=== PATIENT | female | born 1990 | race Two or more races ===

== ENCOUNTER 2023-03-14 12:02 | Emergency (ER) | payer OTHER ==
[2023-03-14 12:15] VITALS: BP 108/49; PULSE 86; RESP 18; TEMP 98.5; BMI 27.2
[2023-03-14] MEDS ORDERED: IBUPROFEN 600 MG TABLET (FP) PO ONE ×2 (12:30→12:40)
== END 2023-03-14 13:19 | disposition home or self-care (01) ==
LOC: JER 12:02 → JERFT 12:02
DX: S93.402A Sprain of unspecified ligament of left ankle, initial encounter (principal); W01.0XXA Fall on same level from slipping, tripping and stumbling without subsequent striking against object, initial encounter
CPT/HCPCS: 73610-TC-LT-FY; 73630-TC-LT; 99283-25

== ENCOUNTER 2023-11-06 13:01 | Emergency (ER) | payer OTHER ==
[2023-11-06 13:14] VITALS: BP 108/68; PULSE 94; RESP 18; TEMP 98.3; BMI 27.8
[2023-11-06] MEDS ORDERED: ACETAMINOPHEN 1000 MG/100 ML BAG IVPB ONE (13:46)
[2023-11-06] MEDS ORDERED: LACTATED RINGERS SOLUTION 1000 ML INFUS.BAG IV ONE (13:46)
[2023-11-06] MEDS ORDERED: ONDANSETRON 4 MG/2 ML VIAL IVPUSH ONE (13:46)
[2023-11-06] MEDS ORDERED: ACETAMINOPHEN INJECTION 100 ML IVPB ONE (14:28)
[2023-11-06 14:41] LABS: BASO % 0.3 % (0-2.0); EOS % 0.4 % (0-4.5); HEMATOCRIT 34.2 % (32.4-45.2); HEMOGLOBIN 11.5 GM/dL (10.7-15.3); LYMPH % 13.3 % (8-40); MCH 28.7 pg (25.7-33.7); MCHC 33.7 g/dl (32.0-36.0); MEAN CELL VOLUME 85.2 fl (80-96); MONO % 6.7 % (3.8-10.2); NEUT % 79.3 % (42.8-82.8); PLATELET COUNT 263 10^3/uL (134-434); RBC 4.01 M/mm3 (3.60-5.2); RDW 13.2 % (11.6-15.6); WHITE BLOOD COUNT 8.6 K/mm3 (4.0-10.0)
[2023-11-06 14:42] LABS: PH,URINE 6.5 (5.0-8.0); URINE APPEARANCE CLOUDY; URINE BILIRUBIN NEGATIVE (NEGATIVE); URINE COLOR YELLOW; URINE GLUCOSE (UA) NEGATIVE (NEGATIVE); URINE KETONE NEGATIVE (NEGATIVE); URINE LEUK ESTERASE NEGATIVE (NEGATIVE); URINE NITRITE NEGATIVE (NEGATIVE); URINE PROTEIN NEGATIVE (NEGATIVE); URINE UROBILINOGEN 0.2 mg/dL (0.2-1.0)
[2023-11-06 15:14] LABS: CHLORIDE 105 mmol/L (98-107); POTASSIUM 4.2 mmol/L (3.5-5.1); SODIUM 136 mmol/L (136-145)
[2023-11-06 15:19] LABS: CALCIUM 9.1 mg/dL (8.5-10.1); GLUCOSE,RANDOM 75 mg/dL (74-106)
[2023-11-06 15:20] LABS: ALBUMIN 2.8 g/dl (3.4-5.0); ANION GAP 5 mmol/L (4-13); BLOOD UREA NITROGEN 10.9 mg/dL (7-18); CO2 26 mmol/L (21-32)
[2023-11-06 15:22] LABS: CREATININE 0.5 mg/dL (0.55-1.3); SGPT/ALT 11 U/L (13-61)
[2023-11-06 15:23] LABS: SGOT/AST 9 U/L (15-37)
[2023-11-06 15:24] LABS: BILIRUBIN,TOTAL < 0.1 mg/dL (0.2-1); TOT PROT 6.5 g/dl (6.4-8.2)
[2023-11-06 15:25] LABS: ALK PHOS 55 U/L (45-117)
== END 2023-11-06 16:56 | disposition home or self-care (01) ==
LOC: JER 13:01
PROC: 3E033NZ Introduction of Analgesics, Hypnotics, Sedatives into Peripheral Vein, Percutaneous Approach (ICD-10-PCS; principal; 2023-11-06)
DX: O26.892 Other specified pregnancy related conditions, second trimester (principal); M54.6 Pain in thoracic spine; R51.9 Headache, unspecified; O21.9 Vomiting of pregnancy, unspecified; Z3A.17 17 weeks gestation of pregnancy; Z20.822 Contact with and (suspected) exposure to COVID-19
CPT/HCPCS: 0241U-QW; 36415; 80053; 81003; 85025; 87086; 99284-25

== ENCOUNTER 2024-03-04 20:31 | Emergency (ER) | payer OTHER ==
[2024-03-04 20:48] VITALS: BMI 31.6
[2024-03-04] MEDS ORDERED: METOCLOPRAMIDE HCL INJECTION 10 MG/2 ML VIAL ONE (21:18)
[2024-03-04] MEDS ORDERED: FAMOTIDINE 20 MG/50 ML IVPB 20 MG/50 ML MG IVPB ONE (21:40)
[2024-03-04 21:42] LABS: BASO % 0.4 % (0-2.0); EOS % 0.7 % (0-4.5); HEMATOCRIT 33.3 % (32.4-45.2); HEMOGLOBIN 11.2 GM/dL (10.7-15.3); MCHC 33.6 g/dl (32.0-36.0); MEAN CELL VOLUME 80.4 fl (80-96); MEAN PLT VOLUME 7.7 fl (7.5-11.1); MONO % 7.9 % (3.8-10.2); PLATELET COUNT 297 10^3/uL (134-434); RBC 4.14 M/mm3 (3.60-5.2); RDW 13.4 % (11.6-15.6); WHITE BLOOD COUNT 8.9 K/mm3 (4.0-10.0)
[2024-03-04] MEDS: LACTATED RINGERS SOLUTION 1000 ML INFUS.BAG IV ONE (21:51)
[2024-03-04] MEDS: FAMOTIDINE 20 MG/50 ML IVPB 20 MG/50 ML MG IVPB ONE (21:52)
[2024-03-04] MEDS: METOCLOPRAMIDE HCL INJECTION 10 MG/2 ML VIAL IVPB ONE (21:52)
[2024-03-04 22:10] LABS: POTASSIUM 4.1 mmol/L (3.5-5.1)
[2024-03-04 22:12] LABS: ALBUMIN 2.6 g/dl (3.4-5.0); CALCIUM 8.8 mg/dL (8.5-10.1); MAGNESIUM 1.8 mg/dL (1.8-2.4)
[2024-03-04 22:15] LABS: CREATININE 0.4 mg/dL (0.55-1.3)
[2024-03-04 22:17] LABS: BILIRUBIN,TOTAL 0.3 mg/dL (0.2-1); TOT PROT 6.6 g/dl (6.4-8.2)
[2024-03-04 22:47] VITALS: PULSE 98
[2024-03-05 01:47] VITALS: BP 108/71; RESP 17; TEMP 98.1
== END 2024-03-05 02:32 | disposition home or self-care (01) ==
LOC: JER 20:31
PROC: 3E033GC Introduction of Other Therapeutic Substance into Peripheral Vein, Percutaneous Approach (ICD-10-PCS; principal; 2024-03-04)
PROC: 3E030GC Introduction of Other Therapeutic Substance into Peripheral Vein, Open Approach (ICD-10-PCS; 2024-03-04)
DX: O21.9 Vomiting of pregnancy, unspecified (principal); O26.893 Other specified pregnancy related conditions, third trimester; R42 Dizziness and giddiness; R63.0 Anorexia; Z3A.35 35 weeks gestation of pregnancy
CPT/HCPCS: 36415; 80053; 83690; 83735; 85025; 93005; 93010; 99284-25

== ENCOUNTER 2024-04-04 21:30 | Inpatient (IN) | payer OTHER ==
[2024-04-05] MEDS: LACTATED RINGERS SOLUTION 500 ML IV ONE (00:40)
[2024-04-05] MEDS: LACTATED RINGERS SOLUTION 1,000 ML IV SCH (01:20)
[2024-04-05 02:33] VITALS: BMI 32.5
[2024-04-05] MEDS: CITRIC ACID/SODIUM CITRATE 30 ML UNIT-DOSE CUP PO ONE (07:35)
[2024-04-05] MEDS: ELECTROLYTE-148 SOLN 500 ML IV ONE (07:45)
[2024-04-05 08:28] LABS: BASO % 0.4 % (0-2.0); EOS % 0.4 % (0-4.5); HEMATOCRIT 32.3 % (32.4-45.2); HEMOGLOBIN 10.9 GM/dL (10.7-15.3); LYMPH % 16.6 % (8-40); MCH 26.6 pg (25.7-33.7); MCHC 33.6 g/dl (32.0-36.0); MEAN CELL VOLUME 79.2 fl (80-96); MEAN PLT VOLUME 8.2 fl (7.5-11.1); MONO % 7.1 % (3.8-10.2); NEUT % 75.5 % (42.8-82.8); PLATELET COUNT 270 10^3/uL (134-434); RBC 4.08 M/mm3 (3.60-5.2); RDW 14.5 % (11.6-15.6); WHITE BLOOD COUNT 7.5 K/mm3 (4.0-10.0)
[2024-04-05 08:31] LABS: INR 0.95 (0.83-1.09); PROTHROMBIN TIME (PATIENT) 10.7 SEC (9.7-13.0)
[2024-04-05 08:34] LABS: ACTIVATED PTT 25.6 SECONDS (25.2-36.5)
[2024-04-05 08:37] LABS: POTASSIUM 3.9 mmol/L (3.5-5.1)
[2024-04-05 08:38] LABS: CALCIUM 8.9 mg/dL (8.5-10.1)
[2024-04-05 08:39] LABS: BLOOD UREA NITROGEN 6.8 mg/dL (7-18)
[2024-04-05 08:42] LABS: CREATININE 0.4 mg/dL (0.55-1.3)
[2024-04-05] MEDS: ELECTROLYTE-148 SOLN 1,000 ML IV SCH (09:00)
[2024-04-05] MEDS ORDERED: ONDANSETRON 4 MG/2 ML VIAL IVPUSH PRN (09:53)
[2024-04-05] MEDS ORDERED: ACETAMINOPHEN 325 MG TABLET (FP) PO PRN (09:53)
[2024-04-05] MEDS ORDERED: IBUPROFEN 600 MG TABLET (FP) PO PRN (09:53)
[2024-04-05] MEDS ORDERED: SODIUM CHLORIDE 0.9% P/F 10 ML VIAL IJ ONE (10:02)
[2024-04-05] MEDS ORDERED: PHENYLEPHRINE HCL 10 MG/1 ML SINGLE DOSE VIAL ONE (10:08)
[2024-04-05] MEDS ORDERED: OXYTOCIN 10 UNITS/ML VIAL ONE ×2 (10:26→10:52)
[2024-04-05] MEDS ORDERED: METOCLOPRAMIDE HCL INJECTION 10 MG/2 ML VIAL ONE (10:32)
[2024-04-05] MEDS: OXYTOCIN 20 UNITS in 0.9% NS 20 UNIT/1,000 ML INFUS.BAG IV SCH (11:10)
[2024-04-05] MEDS ORDERED: IBUPROFEN 800 MG/8 ML IJ IVPB ONE (12:08)
[2024-04-05] MEDS: IBUPROFEN 800 MG/8 ML IJ IVPB PRN (12:20)
[2024-04-05] MEDS: morphine SULFATE/PF 1 MG/2 ML (2cc Syringe - QUVA) EP ONE (12:24)
[2024-04-05 14:24] VITALS: RESP 18
[2024-04-05] MEDS: ACETAMINOPHEN 325 MG TABLET (FP) PO PRN (14:55)
[2024-04-05] MEDS: SIMETHICONE 80 MG TAB.CHEW (FP) PO PRN (21:25)
[2024-04-06] MEDS: oxyCODONE HCL 5 MG TABLET PO PRN (01:39)
[2024-04-06 06:40] LABS: BASO % 0.3 % (0-2.0); EOS % 0.4 % (0-4.5); HEMATOCRIT 30.5 % (32.4-45.2); HEMOGLOBIN 10.3 GM/dL (10.7-15.3); LYMPH % 8.5 % (8-40); MCHC 33.7 g/dl (32.0-36.0); MEAN CELL VOLUME 80.1 fl (80-96); NEUT % 84.8 % (42.8-82.8); PLATELET COUNT 235 10^3/uL (134-434); RDW 14.9 % (11.6-15.6); WHITE BLOOD COUNT 9.9 K/mm3 (4.0-10.0)
[2024-04-06 10:39] LABS: POC NITRAZINE NEG
[2024-04-06 10:41] LABS: POC NITRAZINE POS
[2024-04-06] MEDS: IBUPROFEN 600 MG TABLET (FP) PO PRN (15:00)
[2024-04-06] MEDS: BISACODYL 10 MG SUPP.RECT RC PRN (21:22)
[2024-04-06 22:56] VITALS: TEMP 98.2
[2024-04-08 08:12] LABS: BASO % 0.6 % (0-2.0); EOS % 2.2 % (0-4.5); HEMATOCRIT 30.2 % (32.4-45.2); HEMOGLOBIN 9.9 GM/dL (10.7-15.3); LYMPH % 13.9 % (8-40); MCH 26.5 pg (25.7-33.7); MCHC 32.9 g/dl (32.0-36.0); MEAN CELL VOLUME 80.6 fl (80-96); MEAN PLT VOLUME 7.9 fl (7.5-11.1); MONO % 6.1 % (3.8-10.2); NEUT % 77.2 % (42.8-82.8); PLATELET COUNT 271 10^3/uL (134-434); RBC 3.75 M/mm3 (3.60-5.2); RDW 15.2 % (11.6-15.6); WHITE BLOOD COUNT 7.9 K/mm3 (4.0-10.0)
[2024-04-08 10:07] VITALS: BP 111/68; PULSE 88
== END 2024-04-08 14:15 | disposition home or self-care (01) | DRG 540 ==
LOC: JDEL 21:30 → JLDR 04-05 00:15 → OBSVTOIN 04-05 07:00 → J3W 04-05 13:09
PROVIDERS: ADMIT Obstetrics & Gynecology Obstetrics; ATTEND Obstetrics & Gynecology Obstetrics
PROC: 10D00Z1 Extraction of Products of Conception, Low, Open Approach (ICD-10-PCS; principal; 2024-04-05)
DX: O42.92 Full-term premature rupture of membranes, unspecified as to length of time between rupture and onset of labor (principal); Z3A.39 39 weeks gestation of pregnancy; Z37.0 Single live birth
CPT/HCPCS: 36415; 76819-TC; 80048; 83986-QW; 85025; 85610; 85730; 86780; 86850; 86900; 86901; 88307-TC; G0378

== ENCOUNTER 2024-09-18 20:16 | Emergency (ER) | payer OTHER ==
[2024-09-18 20:33] VITALS: RESP 18; BMI 28.1
[2024-09-18] MEDS ORDERED: KETOROLAC TROMETHAMINE 30 MG/1 ML VIAL ONE (23:58)
[2024-09-18] MEDS ORDERED: AMOX TR/POT CLAV 875MG/125MG TABLETS (FP) ONE (23:58)
[2024-09-19] MEDS: KETOROLAC TROMETHAMINE 30 MG/1 ML VIAL IM ONE (00:08)
[2024-09-19] MEDS: AMOX TR/POT CLAV 875MG/125MG TABLETS (FP) PO ONE (00:08)
[2024-09-19 00:10] VITALS: BP 102/59; PULSE 84; TEMP 98.9
== END 2024-09-19 00:41 | disposition home or self-care (01) ==
LOC: JER 20:16
PROC: 3E0133Z Introduction of Anti-inflammatory into Subcutaneous Tissue, Percutaneous Approach (ICD-10-PCS; principal; 2024-09-19)
DX: N61.0 Mastitis without abscess (principal)
CPT/HCPCS: 99284-25